=== PATIENT | male | born 1955 | race Caucasian/White ===

== ENCOUNTER → 2017-10-06 | Outpatient (CLI) | payer SELFPAY ==
[~2017-10-06] MED LIST: ACHD5005 PO; ALB0.5V INH; ALBU8.5H2 IH; ASP325TEC PO; BETA15OI4 TP; BUDE0.5A2; BUDE0.5A2 IH; BUDE10.2 INH; BUDE6HFA IH; CETI10CA PO; CETI10TA20 PO; DIGO125T PO; DIGO250T PO; DOXY100C2 PO; ENAL5TAB PO; FLUT1DIS26 IH; FLUT9.9S NS; IPR14IN INH; IPRA3AMP IH; IPRA3AMP11 INH; LEVO500T69 PO; LISI-556 PO; LISI1TAB10 PO; LISI1TAB6 PO; METH4TAB PO; METO25TA2 PO; METR1KIT TP; METR60GE TP; OMEP-10 PO; PRD10T PO; SULF1TAB7 PO; TIOT4MIS2 IH
--- NOTE | 2017-10-06 11:30 | Diagnostic Imaging Report ---
PROCEDURE: CT chest without contrast. TECHNIQUE: Multiple contiguous axial images were obtained through the chest without the use of intravenous contrast. INDICATION: Lung nodule and COPD. Comparison is made with prior CT chest from 04/14/2015 and 07/12/2014. No axillary lymphadenopathy is identified. Hilar and mediastinal evaluation is limited without intravenous contrast but no significant abnormality is seen. There are coronary arterial calcifications present. No pericardial or pleural fluid is detected. Parenchymal evaluation again demonstrates biapical pleural-parenchymal scarring. Previously noted nodule in the right lung apex laterally is barely visible on today's study measuring approximately 4 mm compared with 6 mm on study dating back to 07/12/2014. Centrilobular emphysematous changes throughout both lungs are again noted. No new problem mass or infiltrate is seen. Upper abdomen is unremarkable. Bony structures are not acute. IMPRESSION: Stable noncontrast CT chest. Right apical nodular density is stable to perhaps slightly less prominent when compared with prior exams, most consistent with benign etiology. No new abnormality is detected. Dictated by: Dictated on workstation # [id number]
--- NOTE | 2017-10-06 11:50 | Diagnostic Imaging Report ---
INDICATION: Osteopenia. No prior studies are available for comparison. Bone marrow analysis of the lumbar spine and both hips was performed. The bone mineral density of the lumbar spine at L2-L4 is 0.869 with a T score -3.1. Bone mineral density left femoral neck is 0.729 with T score -2.6. Bone mineral density right femoral neck is 0.708 with T score -2.8. IMPRESSION: Osteoporosis of the lumbar spine and bilateral femoral necks. Dictated by: Dictated on workstation # [id number]
== END ==
LOC: RAD 10:57
PROVIDERS: ATTEND Family Medicine
DX: R91.1 Solitary pulmonary nodule (principal); J44.9 Chronic obstructive pulmonary disease, unspecified; M81.0 Age-related osteoporosis without current pathological fracture
CPT/HCPCS: 71250; 77080

== ENCOUNTER 2017-10-27 16:00 | Outpatient (CLI) | payer OTHER ==
[~2017-10-27] VITALS: Ht 172.7 cm; Wt 65.8 kg
[~2017-10-27 16:00] MED LIST changes: +ASPI-808 PO; +CHOL500049 PO; +MONT10TA24 PO; +RT-ALBUINH IH; +TIOT18CA2 IH
== END 2017-10-27 16:07 ==
LOC: PREOP 16:00
PROVIDERS: ATTEND Surgery
DX: Z01.818 Encounter for other preprocedural examination (principal); R19.5 Other fecal abnormalities; K21.9 Gastro-esophageal reflux disease without esophagitis

== ENCOUNTER 2017-11-03 08:13 | Outpatient (RCR) | payer OTHER ==
[~2017-11-03 08:13] MED LIST changes: -IPRA3AMP IH; +IPRA3AMP31 IH
[2017-11-03 08:23] LABS: BASOPHILS # (AUTO) 0.1 10^3/uL (0.0-0.1); BASOPHILS % (AUTO) 2 % (0-10); EOSINOPHILS % (AUTO) 13 % (0-10); HEMATOCRIT 42 % (40-54); HEMOGLOBIN 14.4 G/DL (13.3-17.7); LYMPHOCYTES # (AUTO) 2.5 X 10^3 (1.0-4.0); LYMPHOCYTES % (AUTO) 33 % (12-44); MEAN CORPUSCULAR HEMOGLOBIN 32 PG (25-34); MEAN CORPUSCULAR HGB CONC 34 G/DL (32-36); MEAN CORPUSCULAR VOLUME 93 FL (80-99); MEAN PLATELET VOLUME 8.6 FL (7.4-10.4); MONOCYTES # (AUTO) 0.8 X 10^3 (0.0-1.0); MONOCYTES % (AUTO) 11 % (0-12); NEUTROPHILS % (AUTO) 41 % (42-75); PLATELET COUNT 482 10^3/uL (130-400); RED CELL DISTRIBUTION WIDTH 13.5 % (10.0-14.5); WHITE BLOOD COUNT 7.4 10^3/uL (4.3-11.0)
[2017-11-03 08:46] LABS: ALANINE AMINOTRANSFERASE 21 U/L (0-55); ALBUMIN 4.3 GM/DL (3.2-4.5); ALKALINE PHOSPHATASE 45 U/L (40-136); BILIRUBIN,TOTAL 0.4 MG/DL (0.1-1.0); BUN/CREATININE RATIO 9; CALCIUM 9.3 MG/DL (8.5-10.1); CARBON DIOXIDE 25 MMOL/L (21-32); CHLORIDE 102 MMOL/L (98-107); CREATININE SERUM 0.77 MG/DL (0.60-1.30); GFR ESTIMATED > 60; GLUCOSE 110 MG/DL (70-105); POTASSIUM 4.1 MMOL/L (3.6-5.0); SODIUM 135 MMOL/L (135-145)
[2017-11-03 09:23] LABS: ERYTHROCYTE SEDIMENTATION RATE 1 MM/HR (0-30)
== END 2018-02-01 | disposition home or self-care (01) ==
LOC: ONC 08:13
PROVIDERS: ATTEND Internal Medicine Hematology & Oncology
DX: R91.8 Other nonspecific abnormal finding of lung field (principal); J43.9 Emphysema, unspecified
CPT/HCPCS: 36415; 80053; 81270; 85025; 85652; 86141